=== PATIENT | female | born 1970 | race African-American/Black ===

== ENCOUNTER 2022-04-01 10:25 | Emergency (ER) | payer MEDICAID ==
[~2022-04-01] VITALS: Ht 154.9 cm; Wt 58.0 kg
[2022-04-01 10:37] VITALS: BP 117/84
[2022-04-01] MEDS ORDERED: KETOROLAC 60MG/2ML VIAL IM STA (11:42)
[2022-04-01 12:45] LABS: CLARITY URINE CLEAR (CLEAR); COLOR URINE YELLOW (YELLOW); KETONES URINE NEGATIVE (NEGATIVE); LEUKOCYTE ESTERASE URINE 2+ (NEGATIVE); NITRITE URINE NEGATIVE (NEGATIVE); OCCULT BLOOD URINE NEGATIVE (NEGATIVE); PH URINE 5.5 (4.5-8.0); PROTEIN URINE NEGATIVE (NEGATIVE); SPECIFIC GRAVITY URINE 1.015 (1.005-1.030)
[2022-04-01 12:50] LABS: CHLORIDE 105 mEq/L (98-107)
[2022-04-01 12:52] LABS: BASOPHILS % 0.3 % (0.0-2.0); EOSINOPHILS % 4.3 % (0.0-5.0); HEMATOCRIT. 42.7 % (36.0-48.0); HEMOGLOBIN. 13.6 g/dL (12.0-16.0); LYMPHOCYTES % 27.9 % (20.0-50.0); MEAN CORPUSCULAR HEMOGLOBIN 31.9 pg (28.0-32.0); MEAN CORPUSCULAR VOLUME 100.3 fL (81.0-99.0); MEAN PLATELET VOLUME 9.2 fl (7.4-10.4); MONOCYTES % 9.9 % (2.0-8.0); NEUTROPHILS % 57.6 % (40.0-76.0); PLATELET 187 x1000/uL (130-400); RED BLOOD CELL COUNT 4.25 mill/uL (4.2-5.4)
[2022-04-01 12:57] LABS: ETHANOL BLOOD 28 mg/dL
[2022-04-01 13:00] LABS: *AMPHETAMINES SCREEN URINE NEGATIVE (NEGATIVE); *BARBITURATES SCREEN URINE NEGATIVE (NEGATIVE); *BENZODIAZEPINES SCREEN URINE NEGATIVE (NEGATIVE); *COCAINE SCREEN URINE PRESUMTIVE POSITIVE (NEGATIVE); CANNABINOID URINE SCREEN NEGATIVE (NEGATIVE); METHADONE URINE SCREEN NEGATIVE (NEGATIVE); OPIATES URINE SCREEN PRESUMTIVE POSITIVE (NEGATIVE); PHENCYCLIDINE URINE SCREEN PRESUMTIVE POSITIVE (NEGATIVE)
[2022-04-01 13:56] LABS: CREATINE KINASE 1061 IU/L (26-192)
[2022-04-01] MEDS ORDERED: SULF1TAB48 PO (14:07)
[2022-04-01] MEDS ORDERED: NAPR-681 PO (14:07)
== END 2022-04-01 14:17 | disposition home or self-care (01) ==
LOC: ER 10:25
DX: M79.602 Pain in left arm (principal); M79.601 Pain in right arm; N39.0 Urinary tract infection, site not specified; F19.10 Other psychoactive substance abuse, uncomplicated; E11.649 Type 2 diabetes mellitus with hypoglycemia without coma
CPT/HCPCS: 36415; 80048; 80305; 80320; 81003; 82550; 82962; 85025; 96372; 99283; J1885; Z7610; G0480

== ENCOUNTER 2022-05-05 09:23 | Emergency (ER) | payer OTHER ==
[~2022-05-05] VITALS: Ht 167.6 cm; Wt 55.0 kg
[~2022-05-05 09:23] MED LIST: NAPR-681 PO; SULF1TAB48 PO
[2022-05-05] MEDS ORDERED: MORPHINE SULFATE 4 MG/ML CPJ (NOT FOR IM USE) IV STA (09:48)
[2022-05-05] MEDS ORDERED: ONDANSETRON HCL 4MG/2ML INJ IV STA (09:48)
[2022-05-05 11:43] LABS: CHLORIDE 102 mEq/L (98-107)
[2022-05-05 11:50] LABS: BASOPHILS % 0.1 % (0.0-2.0); EOSINOPHILS % 0.8 % (0.0-5.0); HEMATOCRIT. 36.3 % (36.0-48.0); HEMOGLOBIN. 12.4 g/dL (12.0-16.0); MEAN CORPUSCULAR HEMOGLOBIN 32.8 pg (28.0-32.0); MEAN CORPUSCULAR VOLUME 96.1 fL (81.0-99.0); MEAN PLATELET VOLUME 9.9 fl (7.4-10.4); MONOCYTES % 6.8 % (2.0-8.0); NEUTROPHILS % 82.3 % (40.0-76.0); PLATELET 179 x1000/uL (130-400); RED BLOOD CELL COUNT 3.78 mill/uL (4.2-5.4); RED CELL DISTRIBUTION WIDTH 14.8 % (11.6-14.6)
[2022-05-05] MEDS ORDERED: MORPHINE SULFATE 4 MG/ML CPJ (NOT FOR IM USE) IV ONE (14:00)
[2022-05-05 15:34] VITALS: BP 126/71
== END 2022-05-05 16:07 | disposition short-term general hospital (02) ==
LOC: ER 09:23
DX: R07.89 Other chest pain (principal); G89.29 Other chronic pain; M25.512 Pain in left shoulder; M25.511 Pain in right shoulder; G40.909 Epilepsy, unspecified, not intractable, without status epilepticus; F41.9 Anxiety disorder, unspecified; Z20.822 Contact with and (suspected) exposure to COVID-19
CPT/HCPCS: 36415; 71045; 73030; 80053; 83880; 84484; 85025; 87426; 93005; 96374; 96375; 96376; 99285; C9803; J2270; J2405; Z7610

== ENCOUNTER 2022-05-24 01:04 | Emergency (ER) | payer OTHER ==
[~2022-05-24] VITALS: Ht 165.1 cm; Wt 70.0 kg
[2022-05-24] MEDS ORDERED: IPRATROPIUM/ALBUTEROL 0.5-3(2.5)MG/3ML NEB HHN ONE (01:30)
[2022-05-24 01:49] LABS: BASOPHILS % 0.5 % (0.0-2.0); EOSINOPHILS % 1.4 % (0.0-5.0); HEMATOCRIT. 40.1 % (36.0-48.0); HEMOGLOBIN. 13.4 g/dL (12.0-16.0); LYMPHOCYTES % 22.1 % (20.0-50.0); MEAN CORPUSCULAR HEMOGLOBIN 32.5 pg (28.0-32.0); MEAN CORPUSCULAR VOLUME 97.5 fL (81.0-99.0); MEAN PLATELET VOLUME 9.1 fl (7.4-10.4); MONOCYTES % 6.3 % (2.0-8.0); NEUTROPHILS % 69.7 % (40.0-76.0); PLATELET 219 x1000/uL (130-400); RED BLOOD CELL COUNT 4.12 mill/uL (4.2-5.4)
[2022-05-24 02:03] LABS: CHLORIDE 96 mEq/L (98-107)
[2022-05-24 02:36] LABS: PROTHROMBIN TIME 10.5 sec (9.6-11.0)
[2022-05-24] MEDS ORDERED: ONDANSETRON HCL 4MG/2ML INJ IV NR (04:45)
[2022-05-24] MEDS ORDERED: ACETAMINOPHEN 325MG TABLET PO NR (04:45)
[2022-05-24] MEDS ORDERED: DOXY100C5 MT (06:05)
[2022-05-24 07:30] VITALS: BP 127/70
== END 2022-05-24 07:50 | disposition home or self-care (01) ==
LOC: ER 01:04
DX: J44.1 Chronic obstructive pulmonary disease with (acute) exacerbation (principal); F17.200 Nicotine dependence, unspecified, uncomplicated; I25.2 Old myocardial infarction
CPT/HCPCS: 36415; 71045; 80053; 83880; 84484; 85025; 85379; 85610; 93005; 94640; 96374; 99285; J2405; Z7610